=== PATIENT | female | born 1950 | race Caucasian/White ===

== ENCOUNTER → 2017-02-26 | Outpatient (CLI) | payer OTHER, MEDICARE | LOC: FIMAGING 13:57 | DX: Z12.31 Encounter for screening mammogram for malignant neoplasm of breast (principal) | CPT/HCPCS: G0202 ==

== ENCOUNTER → 2018-04-05 | Outpatient (CLI) | payer OTHER, MEDICARE | LOC: FIMAGING 14:34 | DX: Z12.31 Encounter for screening mammogram for malignant neoplasm of breast (principal) ==